=== PATIENT | female | born 1960 | race Caucasian/White ===

== ENCOUNTER 2025-08-08 21:14 | Observation (INO) | payer MEDICARE ==
[~2025-08-08] VITALS: Ht 157.4 cm; Wt 101.2 kg
[2025-08-08 21:24] VITALS: BP 153/84
[2025-08-08] MEDS ORDERED: ASPIRIN, CHEWABLE 81 MG TAB PO ONE (21:50)
[2025-08-08 21:56] LABS: BASO # 0.1 10*3/uL (0.0-0.1); BASO % 0.6 % (0.0-1.0); EOS # 0.2 10*3/uL (0.0-0.4); EOS % 2.5 % (1.0-4.0); MEAN CELL VOLUME 96.7 fl (81.0-99.0); MEAN CORPUSCULAR HGB 31.6 pg (27.0-31.0); MEAN PLATELET VOLUME 11.1 fl (9.6-12.3); MONO # 0.5 10*3/uL (0.1-1.0); MONO % 5.9 % (3.0-9.0); NEUT # 5.6 10*3/uL (2.3-7.9); NEUT % 62.9 % (47.0-73.0); NUCLEATED RED BLOOD CELL 0.0 % (0.0-0.0); NUCLEATED RED BLOOD CELL 0.0 10*3/uL (0.0-0.0); PLATELET COUNT AUTOMATED 185 10*3/uL (130-400); RED CELL DISTRI WIDTH 14.1 % (0-14.5)
[2025-08-08 22:09] LABS: ACT PARTIAL THROMBO TIME 23.1 SECONDS (20.0-32.1)
[2025-08-08 22:15] LABS: BUN 24.0 mg/dl (9-23); SGPT/ALT 38.0 U/L (5-49)
[2025-08-08] MEDS ORDERED: SODIUM CHLORIDE 0.9% 1,000 ML IV ONE (22:30)
[2025-08-09] VITALS (9 sets, daily range): BP systolic 82–123; BP diastolic 48–69
[2025-08-09] MEDS ORDERED: BISACODYL 10 MG SUPP R PRN (01:15)
[2025-08-09] MEDS ORDERED: Acetaminophen/Hydrocodone 5 MG/325 MG TABLET PO PRN (01:15)
[2025-08-09] MEDS ORDERED: ACETAMINOPHEN 325 MG TAB PO PRN (01:15)
[2025-08-09] MEDS ORDERED: Ondansetron Hydrochloride 4 MG/2 ML VIAL IV PRN (01:15)
[2025-08-09] MEDS ORDERED: ACETAMINOPHEN 650 MG SUPP R PRN (01:15)
[2025-08-09] MEDS ORDERED: BISACODYL 5 MG TAB PO PRN (01:15)
[2025-08-09] MEDS ORDERED: TEMAZEPAM 15 MG CAP PO PRN (01:15)
[2025-08-09] MEDS ORDERED: DEXTROSE 50% 25 GM/50 ML VIAL IV PRN (01:15)
[2025-08-09] MEDS ORDERED: SODIUM CHLORIDE 0.9% 1,000 ML IV ONE ×2 (01:40→04:20)
[2025-08-09] MEDS ORDERED: METFORMIN HYD1000 MG PO (04:16)
[2025-08-09] MEDS ORDERED: ATORVASTATIN CA10 M1 PO (04:16)
[2025-08-09] MEDS ORDERED: ZESTORETIC 20-1 EACH PO (04:16)
[2025-08-09] MEDS ORDERED: ALLOPURINOL300 MG PO (04:16)
[2025-08-09 04:37] LABS: BASO # 0.1 10*3/uL (0.0-0.1); BASO % 0.7 % (0.0-1.0); EOS # 0.2 10*3/uL (0.0-0.4); EOS % 3.0 % (1.0-4.0); MEAN CELL VOLUME 98.2 fl (81.0-99.0); MEAN CORPUSCULAR HGB 31.7 pg (27.0-31.0); MEAN PLATELET VOLUME 10.9 fl (9.6-12.3); MONO # 0.5 10*3/uL (0.1-1.0); MONO % 6.8 % (3.0-9.0); NEUT # 4.2 10*3/uL (2.3-7.9); NEUT % 54.2 % (47.0-73.0); NUCLEATED RED BLOOD CELL 0.0 % (0.0-0.0); NUCLEATED RED BLOOD CELL 0.0 10*3/uL (0.0-0.0); PLATELET COUNT AUTOMATED 160 10*3/uL (130-400); RED CELL DISTRI WIDTH 14.4 % (0-14.5)
[2025-08-09 05:08] LABS: BUN 24 mg/dl (9-23); FREE T4 1.21 ng/dl (0.89-1.76); LDL CHOLESTEROL 37 mg/dL (9-159); SGPT/ALT 34 U/L (5-49)
[2025-08-09 05:10] LABS: VITAMIN D, 25-HYDROXY 43.4 ng/mL (30-100)
[2025-08-09] MEDS ORDERED: Regadenoson 0.4 MG/5 ML SYR IV ONE (06:42)
[2025-08-09] MEDS ORDERED: Technetium Tc 99M Tetrofosmi 0.23 MG KIT IJ SCH (07:25)
[2025-08-09] MEDS ORDERED: INSULIN LISPRO 1 UNIT/0.01 ML SQ SCH (07:30)
[2025-08-09] MEDS ORDERED: ALLOPURINOL 300 MG TAB PO SCH (10:00)
[2025-08-09] MEDS ORDERED: ATORVASTATIN CALCIUM 40 MG TABLET PO SCH (11:25)
[2025-08-09] MEDS ORDERED: Clopidogrel Hydrogen Sulfate 75 MG TAB PO SCH (11:25)
[2025-08-09] MEDS ORDERED: Acetaminophen/Hydrocodone 5 MG/325 MG TABLET PO ONE (14:15)
[2025-08-09] MEDS ORDERED: CLOPIDOGREL75 MG PO (15:34)
[2025-08-09] MEDS ORDERED: ATORVASTATIN CA40 M1 PO (15:34)
[2025-08-09] MEDS ORDERED: IMDUR SA30 MG PO (15:34)
[2025-08-09] MEDS ORDERED: HYDROCODONE-AC1 EAC1 PO (15:35)
[2025-08-09] MEDS ORDERED: ATORVASTATIN CALCIUM 10 MG TAB PO SCH (18:00)
[2025-08-10] MEDS ORDERED: ISOSORBIDE MONONITRATE 30 MG TAB PO SCH (10:00)
== END 2025-08-09 17:46 | disposition home or self-care (01) ==
LOC: ED 21:14 → EDHOLD 08-09 00:21
PROVIDERS: Nurse Practitioner; Student in an Organized Health Care Education/Training Program; ADMIT Internal Medicine; ATTEND Internal Medicine
DX: R07.89 Other chest pain (principal); N17.0 Acute kidney failure with tubular necrosis; E11.65 Type 2 diabetes mellitus with hyperglycemia; R74.01 Elevation of levels of liver transaminase levels; I10 Essential (primary) hypertension; E78.2 Mixed hyperlipidemia; M10.9 Gout, unspecified; M1A.9XX0 Chronic gout, unspecified, without tophus (tophi); Z79.899 Other long term (current) drug therapy